=== PATIENT | female | born 1995 | race Caucasian/White ===

== ENCOUNTER 2020-12-15 11:37 | Emergency (ER) | payer OTHER ==
[~2020-12-15] VITALS: Ht 160 cm; Wt 90.1 kg
[2020-12-15] MEDS ORDERED: PRED20TA PO (12:21)
[2020-12-15] MEDS ORDERED: CLAR10CA3 PO (12:21)
[2020-12-15] MEDS ORDERED: MULTTAB20 PO (12:21)
[2020-12-15] MEDS ORDERED: methylPREDNISolone 125MG 2ML VIAL IV ONE (17:35)
[2020-12-15] MEDS ORDERED: FAMOTIDINE INJ 20MG/2ML VIAL (S0028 PER 1) IVP ONE (17:35)
[2020-12-15] MEDS ORDERED: NS 1,000 ML IV ONE (17:35)
[2020-12-15 18:51] LABS: BASO % 0.1 % (0.0-1.0); HEMATOCRIT 42.3 % (36.0-47.0); HEMOGLOBIN 14.4 g/dl (12.0-15.5); LYMPH # 1.1 10^3/uL (1.5-5.0); LYMPH % 6.6 % (24.0-44.0); MEAN CORPUSCULAR HEMOGLOBIN 29.5 pg (27.0-33.0); MEAN CORPUSCULAR VOLUME 86.7 fl (80.0-96.0); MONO # 0.2 10^3/uL (0.0-0.8); MONO % 1.1 % (2.0-8.0); NEUTROPHILS # 14.8 10^3/uL (1.5-8.5); NEUTROPHILS % 91.8 % (36.0-66.0); PLATELET COUNT, AUTOMATED 357 10^3/uL (150-450); RED BLOOD COUNT 4.88 10^6/uL (4.00-5.40); WHITE BLOOD COUNT 16.2 10^3/uL (4.0-10.0)
[2020-12-15 19:23] LABS: ERYTHROCYTE SEDIMENTATION RATE 6 mm/hr (0-20)
[2020-12-15 19:25] LABS: ALBUMIN 4.2 GM/DL (3.2-5.2); BILIRUBIN,DIRECT 0.1 MG/DL (0.0-0.2); BILIRUBIN,TOTAL 0.3 MG/DL (0.2-1.0); C REACTIVE PROTEIN QUANTITATIV 0.38 MG/DL (0.00-0.30); TOTAL PROTEIN 7.3 GM/DL (6.4-8.2)
[2020-12-15] MEDS ORDERED: diphenhydrAMINE 50MG/ML VIAL (J1200) IV ONE (19:55)
[2020-12-15 20:34] VITALS: BP 129/71
[2020-12-15] MEDS ORDERED: FAMO20TA PO (20:49)
[2020-12-15 21:00] LABS: RSV AMPLIFICATION NEGATIVE (NEGATIVE)
== END 2020-12-15 21:15 | disposition home or self-care (01) ==
LOC: M ED 11:37
DX: L50.9 Urticaria, unspecified (principal); J45.909 Unspecified asthma, uncomplicated; F41.9 Anxiety disorder, unspecified; F90.9 Attention-deficit hyperactivity disorder, unspecified type; Z79.899 Other long term (current) drug therapy
CPT/HCPCS: 80047; 80076; 84702; 85025; 85652; 86140; 87631; 96361; 96374; 96375; 99284; J1200; J2930